=== PATIENT | female | born 1970 | race Caucasian/White ===

== ENCOUNTER 2017-06-18 14:26 | Emergency (ER) | payer MEDICAID ==
[~2017-06-18] VITALS: Ht 180.3 cm; Wt 111.1 kg
[2017-06-18 14:34] VITALS: BP_SYST 149
[2017-06-18 15:48] VITALS: BP_SYST 118
== END 2017-06-18 15:48 | disposition home or self-care (01) ==
LOC: SED 14:26
DX: J20.9 Acute bronchitis, unspecified (principal); F17.210 Nicotine dependence, cigarettes, uncomplicated; R03.0 Elevated blood-pressure reading, without diagnosis of hypertension; Z98.51 Tubal ligation status
CPT/HCPCS: 36415; 71045; 81025; 86403; 87081; 99285

== ENCOUNTER 2017-08-23 15:45 | Emergency (ER) | payer MEDICAID ==
[~2017-08-23] VITALS: Ht 180.3 cm; Wt 113.4 kg
[2017-08-23 15:52] VITALS: BP_SYST 149
[2017-08-23] MEDS ORDERED: KETOROLAC TROMETHAMINE 60 MG/2 ML VIAL IM ONE (16:30)
[2017-08-23 16:50] VITALS: BP_SYST 149
== END 2017-08-23 16:50 | disposition home or self-care (01) ==
LOC: SED 15:45
DX: K02.9 Dental caries, unspecified (principal); F17.210 Nicotine dependence, cigarettes, uncomplicated; Z71.6 Tobacco abuse counseling
CPT/HCPCS: 96372; 99283; J1885